=== PATIENT | male | born 2000 | race Caucasian/White ===

== ENCOUNTER 2020-06-10 21:08 | Emergency (ER) | payer OTHER ==
[~2020-06-10] VITALS: Ht 175.3 cm; Wt 95.3 kg
[2020-06-10 21:12] VITALS: BP 130/76
[2020-06-10 21:15] VITALS: BP 130/76
--- NOTE | 2020-06-10 21:15 | NUR ---
ED Nurse Note: Patient walked in to ED with service animal. Patient is complaining of cough, headache and SOB. Patient reports diarrhea 5 days ago, tested positive for covid19 on 06/08/2020. vitals stable, in no acute distress, reports being a smoker.
[2020-06-10] MEDS ORDERED: ALBUTEROL SULF8.5 G1 INH (21:33)
[2020-06-10] MEDS ORDERED: ZITHROMAX250 MG ORAL (21:33)
[2020-06-10] MEDS ORDERED: PREDNISONE20 MG ORAL (21:33)
[2020-06-10] MEDS ORDERED: PROMETHAZINE-C118 M1 ORAL ×2 (21:33→21:48)
--- NOTE | 2020-06-10 21:50 | NUR ---
ER DISCHARGE NOTE: Patient is cleared to be discharged per ERMD, pt is aox4, on room air, with stable vital signs. pt was given dc and paper prescription instructions, pt was able to verbalize understanding. pt is able to ambulate with steady gait. pt took all belongings.
--- NOTE | 2020-06-13 15:13 | Emergency Room Report ---
History of Present Illness General Chief Complaint: Flu Like Symptoms Source: Patient Present Illness HPI 20-year-old male presents for evaluation. States he tested positive for Covid a few days ago. States has had a cough. Denies fevers or chills. Denies shortness of breath. Cough is productive with yellowish phlegm. No other aggravating relieving factors. Denies any other associated symptoms Allergies: Coded Allergies: No Known Allergies (Unverified , 06/10/20) COVID-19 Screening Contact w/high risk pt: Yes Experienced COVID-19 symptoms?: Yes COVID-19 Testing performed TRANSPORT MEDIC: Yes COVID-19 Screening: Positive COVID-19 COVID-19 Testing Source: [facility] testing site Patient History Past Medical History: psych hx Past Surgical History: none Pertinent Family History: none Social History: Denies: smoking, alcohol use, drug use Immunizations: UTD Reviewed Nursing Documentation: PMH: Agreed; PSxH: Agreed Nursing Documentation-PMH History Of Psychiatric Problem: Yes - anxiety, adhd Review of Systems All Other Systems: negative except mentioned in HPI Physical Exam Vital Signs Date Time Temp Pulse Resp B/P (MAP) Pulse Ox O2 Delivery O2 Flow Rate FiO2 06/10/20 21:12 98.1 72 20 130/76 (94) 95 Room Air Sp02 EP Interpretation: reviewed, normal General Appearance: no apparent distress, alert, GCS 15, non-toxic Head: normocephalic, atraumatic Eyes: bilateral eye normal inspection, bilateral eye PERRL ENT: hearing grossly normal, normal pharynx, no angioedema, normal voice Neck: full range of motion, supple/symm/no masses Respiratory: chest non-tender, lungs clear, normal breath sounds, speaking full sentences Cardiovascular #1: regular rate, rhythm, no edema Cardiovascular #2: 2+ carotid (R), 2+ carotid (L), 2+ radial (R), 2+ radial (L), 2+ dorsalis pedis (R), 2+ dorsalis pedis (L) Gastrointestinal: normal bowel sounds, non tender, soft, non-distended, no guarding, no rebound Rectal: deferred Genitourinary: normal inspection, no CVA tenderness Musculoskeletal: back normal, normal range of motion, gait/station normal, non- tender Neurologic: alert, motor strength/tone normal, oriented x3, sensory intact, responsive, speech normal Psychiatric: judgement/insight normal, memory normal, mood/affect normal, no suicidal/homicidal ideation Reflexes: 3+ bicep (R), 3+ bicep (L), 3+ tricep (R), 3+ tricep (L), 3+ knee (R), 3+ knee (L) Lymphatic: no adenopathy Medical Decision Making Diagnostic Impression: Primary Impression: COVID-19 ER Course Hospital Course 20-year-old male presents with cough and congestion. Recent Covid positive diagnosis Differential diagnoses include: URI, pharyngitis, otitis media, asthma Clinical course Patient placed on stretcher. After initial history, physical exam reveals a young male in no acute distress. Bilateral TM unremarkable. No pharyngeal erythema. No tonsillar exudates. No lymphadenopathy. lungs clear. abdomen soft. I discussed findings with patient. Vitals stable. No tachypnea or hypoxia. No signs of distress. Will discharge home with antibiotics. Inhaler, steroids. Recommended to obtain a pulse oximeter and check his oxygen levels at home. Safe for discharge with close outpatient follow-up. I will provide referrals Diagnosis -COVID-19 Stable and discharged home. Instructed to followup with PMD. Return to ED if symptoms recur or worsen Last Vital Signs Date Time Temp Pulse Resp B/P (MAP) Pulse Ox O2 Delivery O2 Flow Rate FiO2 06/10/20 21:50 98.7 Room Air 06/10/20 21:15 72 20 06/10/20 21:15 130/76 95 Status: improved Disposition: HOME, SELF-CARE Condition: Stable Scripts Codeine/Promethazine Hcl* (PROMETHAZINE-CODEINE SYRUP*) 118 Ml Syrup 5 ML ORAL Q6H PRN for For Cough, #118 ML 0 Refills Prov: Naman Mancera MD 06/10/20 Albuterol Sulfate* (Albuterol Sulfate Hfa*) 8.5 Gm Hfa.aer.ad 2 PUFF INH Q4H, #1 INH Prov: Naman Mancera MD 06/10/20 Prednisone* (PREDNISONE*) 20 Mg Tablet 40 MG ORAL DAILY, #10 TAB Prov: Naman Mancera MD 06/10/20 Azithromycin* (ZITHROMAX*) 250 Mg Tablet 250 MG ORAL DAILY, #6 TAB 0 Refills Take two tables once daily for 1 day, then one tablet once daily for 4 days. Prov: Naman Mancera MD 06/10/20 Referrals: NOT CHOSEN IPA/,REFERRING (PCP) Et[facility] Patient Instructions: Upper Respiratory Infection, Adult, [id number] Naman Mancera MD Jun 13, 2020 15:13
== END 2020-06-10 21:50 | disposition home or self-care (01) ==
LOC: EMR 21:25
DX: U07.1 COVID-19 (principal); F41.9 Anxiety disorder, unspecified
CPT/HCPCS: 99282